=== PATIENT | female | born 1950 | race Caucasian/White ===

== ENCOUNTER 2016-06-25 12:41 | Outpatient (CLI) | payer OTHER ==
[~2016-06-25 12:41] MED LIST: LEVOTHYROXINE88 MCG PO
--- NOTE | 2016-06-25 13:12 | DIAGNOSTIC IMAGING REPORT ---
PROCEDURE: DEXA BONE DENSITY STUDY CLINICAL INDICATION: Screening, postmenopausal, taking vitamin D COMPARISON: 01/20/2008 FINDINGS: LUMBAR SPINE: Bone mineral density 1.000 g/cm2, T score -0.4 normal, change from previous -0.8 percent LEFT HIP: Bone mineral density 0.982 g/cm2, T score 0.3 normal, change from previous 8.1 percent LEFT FEMORAL NECK: Bone mineral density 0.697 g/cm2, T score -1.4, osteopenia, change from previous 0.3 percent . FRACTURE RISK CALCULATION ( when applicable): 10-year fracture risk of a major osteoporotic fracture 7.8% and of a hip fracture 0.7% (T score greater or equal to -1.0 to: NORMAL) (T score from -1.1 to -2.4: OSTEOPENIA) (T score ess than or equal to -2.5: OSTEOPOROSIS) IMPRESSION: 1. Significant interval increase in total hip bone mineral density compared to the prior study. This may reflect degenerative sclerotic changes in the femoral acetabular joint, or adequate vitamin D therapy. 2. No significant change in bone mineral density of the lumbar spine and left femoral neck. 3. Osteopenia of the femoral neck mildly elevates the patient's 10-year fracture risk as described.
== END 2016-06-25 23:00 | disposition home or self-care (01) ==
LOC: XR SRH 12:41
DX: Z78.0 Asymptomatic menopausal state (principal); M85.88 Other specified disorders of bone density and structure, other site